=== PATIENT | male | born 1970 | race Two or more races ===

== ENCOUNTER 2016-08-22 09:05 | Emergency (ER) | payer MEDICAID, OTHER ==
[~2016-08-22] VITALS: Ht 167.6 cm; Wt 68.0 kg
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
[2016-08-22] MEDS ORDERED: ONDANSETRON HCL/PF 4 MG/2 ML VIAL ONE (09:46)
[2016-08-22 09:50] LABS: BASOPHILS % (AUTO) 0.7 % (0.0-2.0); EOSINOPHILS # (AUTO) 0.4 /CMM (0.0-0.7); EOSINOPHILS % (AUTO) 6.8 % (0.0-6.0); HEMATOCRIT 45 % (39-51); HEMOGLOBIN 14.8 g/dL (13.5-17.5); LYMPHOCYTES # (AUTO) 1.8 /CMM (0.8-4.8); LYMPHOCYTES % (AUTO) 32.9 % (20.0-44.0); MEAN CORPUSCULAR HEMOGLOBIN 30 PG (26.0-33.0); MEAN CORPUSCULAR HGB CONC 33 g/dl (31.0-36.0); MEAN CORPUSCULAR VOLUME 89 fL (80-96); MONOCYTES # (AUTO) 0.2 /CMM (0.1-1.30); MONOCYTES % (AUTO) 4.5 % (2.0-12.0); NEUTROPHILS % (AUTO) 55.1 % (43.0-81.0); PLATELET COUNT (AUTO) 248 /CMM (150-450); RDW COEFFICIENT OF VARIATION 14.4 (11.5-15.0); WHITE BLOOD COUNT (AUTO) 5.5 K/uL (4.3-11.0)
[2016-08-22 09:59] LABS: CALCIUM, SERUM 9.4 mg/dL (8.5-10.1); CREATININE 1.1 mg/dL (0.6-1.3); POTASSIUM 3.8 mmol/L (3.5-5.1)
[2016-08-22] MEDS ORDERED: IV NS 0.9% 1,000 ML BAG IV ONE (10:00)
[2016-08-22] MEDS ORDERED: ONDANSETRON HCL/PF 4 MG/2 ML VIAL IVP ONE (10:00)
[2016-08-22] MEDS ORDERED: IOHEXOL-350 100 ML VIAL IV ONE (10:03)
[2016-08-22] MEDS ORDERED: IV NS 0.9% 250 ML IV ONE (10:03)
[2016-08-22] MEDS ORDERED: CT SWABBABLE VALVE TRANS SET 1 EA INFUS.SET MC ONE (10:03)
--- NOTE | 2016-08-22 10:07 | NUR ---
IV FLUIDA ND ZOFRAN 4 MG IVP GIVEN PER MD ORDERAWAITING EVALUATION BY ER PROVIDER.
[2016-08-22 10:08] LABS: INR 0.91 (0.87-1.13); PROTHROMBIN TIME 9.7 SECS (9.5-12.7)
--- NOTE | 2016-08-22 10:15 | NUR ---
PT SENT TO CT
[2016-08-22] MEDS ORDERED: SUMATRIPTAN SUCCINATE 6 MG/0.5 ML VIAL SQ ONE (11:00)
[2016-08-22 11:14] VITALS: BP 124/73
--- NOTE | 2016-08-22 11:14 | NUR ---
PT. VERBALIZED UNDERSTANDING OF AFTERCARE INSTRUCTIONS.IV removed. Catheter intact and site benign. Pressure and 4x4 applied to site. No bleeding noted.Patient discharged to home in stable condition. Written and verbal after care instructions given. Patient verbalizes understanding of instruction.
== END 2016-08-22 11:15 | disposition home or self-care (01) ==
LOC: ER 09:07
DX: R51 Headache (principal); K92.1 Melena; R11.0 Nausea
CPT/HCPCS: 36415; 70496; 80048; 85025; 85730; 96361; 96374; 99285; A4606; J2405; J7050; Q9967; Z7610

== ENCOUNTER 2017-12-14 14:45 | Emergency (ER) | payer OTHER ==
[~2017-12-14] VITALS: Ht 165.1 cm; Wt 72.6 kg
--- NOTE | 2017-12-14 15:00 | NUR ---
A/OX4, PT STS HE CHECKED HIS BP THIS AM 166/110, PALPITATION STARTED TODAY. PT IS ALSO COMPLAINING OF LEFT UPPER BACK PAIN. PT DENIES CP. NAD ALL NEEDS ARE ATTENDED. KEPT COMFORTABLE. ASSISTED TO ED BED 07
[2017-12-14 15:52] LABS: BASOPHILS % (AUTO) 0.4 % (0.0-2.0); EOSINOPHILS % (AUTO) 1.3 % (0.0-6.0); HEMATOCRIT 48 % (39-51); HEMOGLOBIN 15.6 g/dL (13.5-17.5); LYMPHOCYTES # (AUTO) 2.2 /CMM (0.8-4.8); LYMPHOCYTES % (AUTO) 30.5 % (20.0-44.0); MEAN CORPUSCULAR HEMOGLOBIN 29 PG (26.0-33.0); MEAN CORPUSCULAR HGB CONC 33 g/dl (31.0-36.0); MEAN CORPUSCULAR VOLUME 88 fL (80-96); MONOCYTES # (AUTO) 0.3 /CMM (0.1-1.30); MONOCYTES % (AUTO) 4.5 % (2.0-12.0); NEUTROPHILS # (AUTO) 4.7 /CMM (1.8-8.9); NEUTROPHILS % (AUTO) 63.3 % (43.0-81.0); PLATELET COUNT (AUTO) 283 /CMM (150-450); RDW COEFFICIENT OF VARIATION 12.9 (11.5-15.0); RED BLOOD CELL COUNT(AUTO) 5.42 MIL/uL (4.5-6.0); WHITE BLOOD COUNT (AUTO) 7.3 K/uL (4.3-11.0)
[2017-12-14 16:01] LABS: CALCIUM, SERUM 10.2 mg/dL (8.5-10.1); CARBON DIOXIDE 30 mmol/L (21-32); CHLORIDE 103 mmol/L (98-107); CREATININE 1.1 mg/dL (0.6-1.3); GLUCOSE 103 mg/dL (74-106); POTASSIUM 4.1 mmol/L (3.5-5.1); SODIUM SERUM 140 mmol/L (136-145); UREA NITROGEN, BLOOD 17 mg/dL (7-18)
[2017-12-14 16:04] LABS: INR 0.91 (0.85-1.15)
[2017-12-14 16:09] LABS: TROPONIN I < 0.017 ng/mL (0.00-0.056)
[2017-12-14 16:26] LABS: D-DIMER 0.25 mg/L(FEU (0.17-0.50)
--- NOTE | 2017-12-14 16:39 | NUR ---
PT BACK FROM CT
[2017-12-14 16:43] VITALS: BP 148/93
--- NOTE | 2017-12-14 18:23 | NUR ---
NO SALINE LOCK,VERBALIZED UNDERSTANDING OF ACI,INSTRUCTED NOT TO DRIVE IF TAKING MEDICATION PRESCRIBED
== END 2017-12-14 18:25 | disposition home or self-care (01) ==
LOC: ER 14:51
DX: R00.2 Palpitations (principal); R53.1 Weakness; F41.9 Anxiety disorder, unspecified; Z60.2 Problems related to living alone; I10 Essential (primary) hypertension; R94.02 Abnormal brain scan
CPT/HCPCS: 36415; 70450; 71045; 80048; 84443; 84484; 85025; 85378; 85730; 93005; 99285; A4606; Z7610

== ENCOUNTER 2019-05-23 10:32 | Emergency (ER) | payer OTHER ==
[~2019-05-23] VITALS: Ht 165.1 cm; Wt 72.6 kg
--- NOTE | 2019-05-23 11:00 | NUR ---
patient came in to the er c/o "On/off palpitations x2wks yesterday worse felt faint. Went to clinic was told to go ER". On room air, breathing evenly and unlabored. connected to the monitor and pulse ox. kept comfortable, will continue to monitor accordingly.
[2019-05-23 11:25] LABS: BASOPHILS # (AUTO) 0.1 /CMM (0.0-0.2); BASOPHILS % (AUTO) 0.9 % (0.0-2.0); EOSINOPHILS % (AUTO) 0.8 % (0.0-6.0); HEMATOCRIT 49 % (39-51); HEMOGLOBIN 16.2 g/dL (13.5-17.5); LYMPHOCYTES # (AUTO) 2.1 /CMM (0.8-4.8); LYMPHOCYTES % (AUTO) 21.3 % (20.0-44.0); MEAN CORPUSCULAR HGB CONC 33 g/dl (31.0-36.0); MEAN CORPUSCULAR VOLUME 92 fL (80-96); MONOCYTES # (AUTO) 0.5 /CMM (0.1-1.30); MONOCYTES % (AUTO) 4.9 % (2.0-12.0); NEUTROPHILS # (AUTO) 6.9 /CMM (1.8-8.9); NEUTROPHILS % (AUTO) 72.1 % (43.0-81.0); PLATELET COUNT (AUTO) 245 /CMM (150-450); RED BLOOD CELL COUNT(AUTO) 5.29 MIL/uL (4.5-6.0); WHITE BLOOD COUNT (AUTO) 9.6 K/uL (4.3-11.0)
[2019-05-23] MEDS ORDERED: IV NS 0.9% 1,000 ML BAG IV ONE (11:30)
[2019-05-23 11:33] LABS: CALCIUM, SERUM 9.9 mg/dL (8.5-10.1); CARBON DIOXIDE 30 mmol/L (21-32); CHLORIDE 102 mmol/L (98-107); GLUCOSE 113 mg/dL (74-106); POTASSIUM 4.4 mmol/L (3.5-5.1); SODIUM SERUM 139 mmol/L (136-145); UREA NITROGEN, BLOOD 15 mg/dL (7-18)
[2019-05-23 11:39] LABS: ALANINE AMINOTRANSFERASE 66 U/L (12-78); ALKALINE PHOSPHATASE 73 U/L (46-116); ASPARTATE AMINOTRANSFERASE 37 U/L (15-37); BILIRUBIN,DIRECT 0.1 mg/dL (0.0-0.2); BILIRUBIN,TOTAL 0.5 mg/dL (0.2-1.0); TOTAL PROTEIN, SERUM 8.8 g/dL (6.4-8.2)
[2019-05-23 12:36] VITALS: BP 125/81
--- NOTE | 2019-05-23 12:36 | NUR ---
Patient discharged to home in stable condition. Written and verbal after care instructions given. Patient verbalizes understanding of instruction.IV removed. Catheter intact and site benign. Pressure and 4x4 applied to site. No bleeding noted.
== END 2019-05-23 12:36 | disposition home or self-care (01) ==
LOC: ER 10:32
DX: F41.9 Anxiety disorder, unspecified (principal); R00.2 Palpitations; E78.00 Pure hypercholesterolemia, unspecified; I10 Essential (primary) hypertension; Z98.890 Other specified postprocedural states; Z60.2 Problems related to living alone
CPT/HCPCS: 36415; 71045; 80048; 80076; 84443; 84484; 85025; 85730; 93005; 99284; J7030

== ENCOUNTER 2021-10-08 22:22 | Emergency (ER) | payer OTHER ==
[~2021-10-08] VITALS: Ht 170.2 cm; Wt 74.8 kg
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
[2021-10-08] MEDS ORDERED: ACETAMINOPHEN 325 MG TABLET PO ONE (23:30)
[2021-10-08] MEDS ORDERED: ACETAMINOPHEN ES 500 MG TABLET ONE (23:30)
--- NOTE | 2021-10-09 00:19 | NUR ---
PT IS MEDICALLY STABLE FOR D/C. Patient discharged to home in stable condition. Written and verbal after care instructions given. Patient verbalizes understanding of instruction.
[2021-10-09 00:20] VITALS: BP 149/88
== END 2021-10-09 00:20 | disposition home or self-care (01) ==
LOC: ER 22:39
DX: S16.1XXA Strain of muscle, fascia and tendon at neck level, initial encounter (principal); M62.838 Other muscle spasm; M54.12 Radiculopathy, cervical region; I10 Essential (primary) hypertension; F41.9 Anxiety disorder, unspecified; Z60.2 Problems related to living alone; V49.49XA Driver injured in collision with other motor vehicles in traffic accident, initial encounter; Y93.89 Activity, other specified; Y92.413 State road as the place of occurrence of the external cause; Y99.8 Other external cause status
CPT/HCPCS: 72125-TC